=== PATIENT | female | born 1980 | race American Indian/Alaskan Native ===

== ENCOUNTER 2021-10-22 00:04 | Emergency (ER) | payer OTHER ==
[2021-10-22] MEDS ORDERED: SODIUM CHLORIDE 0.9% 1000 ML 1,000 ML IV ONE (01:14)
[2021-10-22] MEDS ORDERED: LORazepam 2 MG/ML VIAL IV ONE (01:14)
[2021-10-22] MEDS ORDERED: ONDANSETRON 4 MG/2 ML INJ IV ONE (01:14)
[2021-10-22 01:15] LABS: Hemoglobin 12.8 gm/dl (10.1-14.3); Mean Corpuscular HGB Conc 34 % (30-34); Mean Corpuscular Volume 88 fl (79-97); Platelet Count 250 K/mm3 (140-440); Red Cell Distribution Width 14.5 % (13.2-15.2)
[2021-10-22] MEDS ORDERED: KETOROLAC 30 MG/1 ML INJ IV ONE (01:15)
[2021-10-22 01:16] LABS: Color,Urine Colorless (Yellow)
[2021-10-22 01:18] LABS: Bacteria,Urine 1+ /HPF (Negative); Mucus,Urine FEW /HPF
--- NOTE | 2021-10-22 01:18 | Emergency Department Report ---
ED General Adult HPI - General Chief complaint: Abdominal Pain Stated complaint: LEFT BACK PAIN/LOWER AB PAIN PUI?: No Time Seen by Provider: 10/22/21 01:11 Source: patient Mode of arrival: Stretcher Limitations: No Limitations - History of Present Illness Initial comments: Right flank pain with vomiting radiating to right lower abdomem X 2 hours. Denies any other symptoms. - Related Data Previous Rx's Medication Instructions Recorded Last Taken Type Ketorolac [Toradol] 10 mg PO Q6H PRN #12 10/22/21 Unknown Rx Allergies Allergy/AdvReac Type Severity Reaction Status Date / Time No Known Allergies Allergy Unverified 10/22/21 00:16 ED Review of Systems ROS: Stated complaint: LEFT BACK PAIN/LOWER AB PAIN Other details as noted in HPI Comment: All other systems reviewed and negative Constitutional: no symptoms reported, see HPI Eyes: as per HPI ENT: as per HPI Respiratory: no symptoms reported, see HPI Cardiovascular: as per HPI Endocrine: no symptoms reported, see HPI Gastrointestinal: as per HPI, abdominal pain, nausea, vomiting. denies: diarrhea, constipation, hematemesis, melena, hematochezia Genitourinary: as per HPI Musculoskeletal: as per HPI Skin: as per HPI Neurological: as per HPI Psychiatric: as per HPI Hematological/Lymphatic: as per HPI ED Past Medical Hx - Past Medical History Previous Medical History?: No - Surgical History Past Surgical History?: Yes Additional Surgical History: - Social History Smoking Status: Current Every Day Smoker Substance Use Type: None - Medications Home Medications: Home Medications Medication Instructions Recorded Confirmed Last Taken Type Ketorolac [Toradol] 10 mg PO Q6H PRN #12 10/22/21 Unknown Rx ED Physical Exam - General Limitations: No Limitations General appearance: alert, in distress (mild) - Head Head exam: Present: atraumatic, normocephalic, normal inspection - Eye Eye exam: Present: normal appearance, PERRL, EOMI Pupils: Present: normal accommodation - ENT ENT exam: Present: normal exam, mucous membranes moist - Neck Neck exam: Present: normal inspection, full ROM - Respiratory Respiratory exam: Present: normal lung sounds bilaterally - Cardiovascular Cardiovascular Exam: Present: regular rate, normal rhythm, normal heart sounds - GI/Abdominal GI/Abdominal exam: Present: soft - Extremities Exam Extremities exam: Present: normal inspection, full ROM, normal capillary refill - Back Exam Back exam: Present: normal inspection, full ROM - Neurological Exam Neurological exam: Present: alert, oriented X3, CN II-XII intact - Psychiatric Psychiatric exam: Present: normal affect, normal mood - Skin Skin exam: Present: normal color ED Course Vital Signs 10/22/21 10/22/21 10/22/21 00:04 00:31 00:32 Temperature 98 F Pulse Rate 71 61 Respiratory 18 13 Rate Blood Pressure 150/88 O2 Sat by Pulse 100 99 Oximetry 10/22/21 10/22/21 10/22/21 00:45 01:01 01:31 Temperature Pulse Rate 70 90 62 Respiratory 12 18 17 Rate Blood Pressure 196/114 196/114 173/99 O2 Sat by Pulse 99 100 100 Oximetry 10/22/21 10/22/21 10/22/21 02:01 02:35 03:01 Temperature Pulse Rate 80 57 L 71 Respiratory 13 16 12 Rate Blood Pressure 146/81 173/99 125/79 O2 Sat by Pulse 99 100 99 Oximetry 10/22/21 10/22/21 03:31 04:01 Temperature Pulse Rate 78 68 Respiratory 18 16 Rate Blood Pressure 124/77 127/85 O2 Sat by Pulse 99 99 Oximetry ED Medical Decision Making - Lab Data Result diagrams: 10/22/21 01:03 10/22/21 01:03 Critical care attestation.: If time is entered above; I have spent that time in minutes in the direct care of this critically ill patient, excluding procedure time. ED Disposition Clinical Impression: Hydronephrosis, Nephrolithiasis, Pulmonary nodule Disposition: HOME / SELF CARE / HOMELESS Is pt being admited?: No Does the pt Need Aspirin: No Condition: Stable Instructions: Abdominal Pain (ED), Pulmonary Nodule, [id number], Kidney Stones Additional Instructions: Your CT scan revealed that there is an incidental pulmonary nodule in the right middle lobe measuring 7 mm with solid characteristics. Recommendation according to the Fleischner Society of 2017 guidelins: Low risk patient: CT at 6-12 months, then consdier CT at 18-24 months; High risk patient: CT at 6-12 months, then CT at 18-24 months. Make a follow-up appointment with your primary care provider to be seen within 3 days for further outpatient evaluation of the CT scan report listed above. Bring this paperwork to your primary care provider fall so they can see the CT scan results. Also make a follow-up appointment with urologist for your kidney stone. Prescriptions: Ketorolac [Toradol] 10 mg PO Q6H PRN #12 PRN Reason: Pain Forms: Work/School Release Form(ED) Time of Disposition: 04:14
[2021-10-22 01:23] LABS: WBC,Urine < 1.0 /HPF (0.0-6.0)
[2021-10-22 01:35] LABS: Alanine Aminotransferase 11 units/L (7-56); Albumin 4.5 g/dL (3.9-5); Blood Urea Nitrogen 11 mg/dL (7-17); Calcium 8.5 mg/dL (8.4-10.2); Hemolysis Index 11
[2021-10-22 01:49] LABS: Basophils % (Manual) 0 % (0.0-1.8); Eosinophils % (Manual) 0 % (0.0-4.3); Total Cells Counted 100
[2021-10-22 01:50] LABS: Platelet Estimate Consistent w Auto
[2021-10-22 01:51] LABS: BUN/Creatinine Ratio 16
[2021-10-22 01:52] LABS: HCG Qualitative,Urine Negative (Negative)
--- NOTE | 2021-10-22 03:05 | Cat Scan Report ---
CT abdomen pelvis wo con INDICATION / CLINICAL INFORMATION: L FLSNK PAIN; STONE. TECHNIQUE: Axial CT imaging of abdomen and pelvis was obtained without contrast. Coronal and sagittal reformatte d imaging obtained and reviewed. All CT scans at this location are performed using CT dose reduction for ALARA by means of automated exposure control. COMPARISON: None available. FINDINGS: CT abdomen without contrast demonstrates severe inflammatory change in the left perinephric space. Th ere is moderate left hydronephrosis. No calculi are seen within either kidney. However, there is a 4 mm calculus in the distal left ureter, accounting for the patient's left hydronephrosis. Calculus is approximately 1 cm from the ureteral orifice. For noncontrast exam, the liver, spleen, pancreas, right kidney, and adrenal glands are grossly unrem arkable. Gallbladder is present. Abdominal aorta contains a small amount of calcific plaque but is no t aneurysmal. CT pelvis does not demonstrate mass, free fluid, or focal inflammatory process. A normal appendix is present in the right lower quadrant. Uterus is mildly enlarged. GI tract is grossly unremarkable. Visualized lung bases demonstrate pulmonary nodule in the right midlung anteriorly measuring approxim ately 7-8 mm. The nodule does not contain calcification. Visualized osseous structures do not demonstrate any acute skeletal abnormality of significance. IMPRESSION: 1. Severe left hydronephrosis and associated perinephric inflammatory change, caused by a 4 mm calcul us in the distal left ureter. 2. incidental pulmonary nodule(s) in the right middle lobe measuring 7 mm with solid characteristics. Recommendation according to Fleischner Society 2017 Guidelines: Low Risk Patient: CT at 6-12 months, then consider CT at 18-24 months; High Risk Patient: CT at 6-12 months, then CT at 18-24 months Signer Name: Kiera Patel MD Signed: 10/22/2021 3:01 AM Workstation Name: [id number]
[2021-10-22 04:10] VITALS: BP 127/85
[2021-10-22] MEDS ORDERED: TAMSULOSIN 0.4 MG CAP PO ONE (04:11)
== END 2021-10-22 04:32 | disposition home or self-care (01) ==
LOC: ED 00:04
DX: N13.2 Hydronephrosis with renal and ureteral calculous obstruction (principal); R91.1 Solitary pulmonary nodule; F17.200 Nicotine dependence, unspecified, uncomplicated; Z98.890 Other specified postprocedural states; Z79.899 Other long term (current) drug therapy
CPT/HCPCS: 36415; 74176; 80053; 81001; 81025; 85007; 85025; 96361; 96374; 96375; 99284; J1885; J2060; J2405; J7030